=== PATIENT | male | born 1995 | race Two or more races ===

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

== ENCOUNTER 2017-01-01 12:38 | Emergency (ER) | payer OTHER ==
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
[2017-01-01] MEDS ORDERED: LET GEL TOPICAL 1 EA SYR TP ONE (13:21)
[2017-01-01 14:03] VITALS: BP 143/99; PULSE 82; RESP 18; TEMP 99; O2SAT 98
== END 2017-01-01 14:07 | disposition home or self-care (01) ==
DX: S63.682A Other sprain of left thumb, initial encounter (principal); V18.9XXA Unspecified pedal cyclist injured in noncollision transport accident in traffic accident, initial encounter
CPT/HCPCS: L3807

== ENCOUNTER 2017-02-17 17:15 | Inpatient (IN) | payer OTHER ==
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
[2017-02-17 18:37] LABS: % IMMATURE GRANULYOCYTES 0.3 % (0.0-1.1); ABSOLUTE IMMATURE GRANULOCYTES 0.03 10^3/uL (0.00-0.10); ADD DIFF? NO; ADD MORPH? NO; ADD SCAN? NO; ATYPICAL LYMPHOCYTE FLAG 0 (0-99); FRAGMENT RBC FLAG 0 (0-99); HEMATOCRIT 42.9 % (40.0-51.0); HEMOGLOBIN 14.8 g/dL (13.7-17.5); LEFT SHIFT FLG 0 (0-99); LIPEMIA HEMOLYSIS FLAG 90 (0-99); MEAN CELL HEMOGLOBIN CONCENTR. 34.5 g/dL (32.4-36.7); MEAN CELL VOLUME 84.1 fL (81.5-99.8); MEAN PLATELET VOLUME 9.7 fL (8.7-11.7); PLATELET CLUMPS FLAG 0 (0-99); PLATELET COUNT 236 10^3/uL (150-400); RED CELL DISTRIBUTION WIDTH 14.2 % (11.5-15.2)
[2017-02-17 19:19] LABS: ANION GAP 16 mEq/L (8-16); CALCIUM 10.4 mg/dL (8.5-10.4); CARBON DIOXIDE 25 mEq/l (22-31); CHLORIDE 98 mEq/L (97-110); CREATININE 1.1 mg/dL (0.7-1.3); ETHANOL SERUM < 10 mg/dL (0-10); GLOMERULAR FILTRATION RATE > 60; GLUCOSE 83 mg/dL (70-100); POTASSIUM 3.9 mEq/L (3.5-5.2); SALICYLATE < 1.0 mg/dL (2.0-20.0); SODIUM 139 mEq/L (134-144)
[2017-02-17] MEDS ORDERED: LORazepam 1 MG TAB PO ONE (23:55)
[2017-02-18] MEDS ORDERED: MAGNESIUM HYDROXIDE 30 ML UDCUP PO PRN (00:30)
[2017-02-18] MEDS ORDERED: OLANZapine DISINTEGR 5 MG TAB PO PRN (00:30)
[2017-02-18] MEDS ORDERED: NICOTINE POLACRILEX 2 MG GUM B PRN (00:30)
[2017-02-18] MEDS ORDERED: MAG HYDROX/AL HYDROX/SIMETH 30 ML UDCUP PO PRN (00:30)
[2017-02-18] MEDS ORDERED: ACETAMINOPHEN 325 MG TAB PO PRN (00:30)
[2017-02-18 01:36] VITALS: BP 147/72; PULSE 78; RESP 14; TEMP 97.7; O2SAT 98
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
[2017-02-18] MEDS: LORazepam 0.5 MG TAB PO PRN ×2 (19:38→20:52)
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
[2017-02-19] MEDS: LORazepam 0.5 MG TAB PO PRN (08:14)
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
== END 2017-02-19 12:08 | disposition home or self-care (01) | DRG 881 ==
LOC: BBEH 02-18 00:57
PROVIDERS: ADMIT Psychiatry & Neurology Behavioral Neurology & Neuropsychiatry; ATTEND Psychiatry & Neurology Behavioral Neurology & Neuropsychiatry
DX: F32.9 Major depressive disorder, single episode, unspecified (principal); F90.9 Attention-deficit hyperactivity disorder, unspecified type; Z62.820 Parent-biological child conflict; Z63.8 Other specified problems related to primary support group; Z87.828 Personal history of other (healed) physical injury and trauma; F17.229 Nicotine dependence, chewing tobacco, with unspecified nicotine-induced disorders
CPT/HCPCS: 80305; G0480

== ENCOUNTER 2017-02-22 08:43 | Emergency (ER) | payer OTHER ==
[2017-02-22 08:48] VITALS: BP 125/79; PULSE 96; RESP 18; TEMP 98.4; O2SAT 95
--- NOTE | 2017-02-22 08:59 | EDPHY ---
H & P Stated Complaint: Subjective fever x 3 days;thinks he has the flu Time Seen by Provider: 02/22/17 08:59 - Personal History Current Tetanus Diphtheria and Acellular Pertussis (TDAP): Unsure - Medical/Surgical History Hx Asthma: No Hx Chronic Respiratory Disease: No Hx Diabetes: No Hx Cardiac Disease: No Hx Renal Disease: No Hx Cirrhosis: No Hx Alcoholism: No Hx HIV/AIDS: No Hx Splenectomy or Spleen Trauma: No Other PMH: ADHD. persistent depressive disorder - Social History Smoking Status: Former smoker Constitutional: Initial Vital Signs Temperature (C) 36.9 C 02/22/17 08:44 Heart Rate 96 02/22/17 08:44 Respiratory Rate 18 02/22/17 08:44 Blood Pressure 125/79 H 02/22/17 08:44 O2 Sat (%) 95 02/22/17 08:44 O2 Delivery Mode Room Air Allergies/Adverse Reactions: Cephalosporins Allergy (Verified 02/22/17 08:44) Home Medications: Medication Instructions Recorded Amphet Asp and D/Amphet [Adderall 10 mg PO DAILY@15 02/18/17 10 MG (*)] Lisdexamfetamine Dimesylate 30 mg PO DAILY 02/18/17 [Vyvanse] LORazepam [Ativan (*)] 0.5 - 1 mg PO Q4HRS PRN #14 tab 02/19/17 Clindamycin 150 mg PO QID #40 cap 02/22/17 Medical Decision Making ED Course/Re-evaluation: CHIEF COMPLAINT: Fever, sore throat. HISTORY OF PRESENT ILLNESS: The patient is a 22-year-old male presenting with fever and sore throat. The patient reports difficulty swallowing. He has been having on and off chills for the past 3 days. Patient feels fatigued. He denies difficulty breathing, abdominal pain, nausea, or diarrhea. REVIEW OF SYSTEMS: A 10 point review of systems was performed and is negative with the exception of the elements mentioned in the history of present illness. PHYSICAL EXAM: HR, BP, O2 Sat, RR. Temp noted General Appearance: Alert, well hydrated, appropriate, and non-toxic appearing. Head: Atraumatic without scalp tenderness or obvious injury Eyes: Pupils equal, round, reactive to light and accommodation, EOMI, no trauma , no injection. Ears: Clear bilaterally, no perforation, normal landmarks Nose: Atraumatic, no rhinorrhea, clear. Throat: There is erythema and exudates. Neck: Supple, 2+ carotid upstroke, nontender, no lymphadenopathy. Respiratory: No retractions, no distress, no wheezes, and no accessory muscle use. Lungs are clear to auscultation bilaterally. Cardiovascular: Regular rate and rhythm, no murmurs, rubs, or gallops. Bilateral carotid, radial, dorsalis pedis, and posterior tibial pulses intact. Good capillary refill all extremities. Gastrointestinal: Abdomen is soft, nontender, non-distended, no masses, no rebound, no guarding, no peritoneal signs. Musculoskeletal: Normal active ROM of all extremities, atraumatic. Neurological: Alert, appropriate, and interactive. The patient has normal DTRs and non-focal cranial nerves, motor, sensory, and cerebellar exam. Skin: No rashes, good turgor, no nodules on palpation. Past medical history: Denies. Past surgical history: Denies. Family history: Noncontributory. Social history: [employer] student. DIFFERENTIAL DIAGNOSIS: The differential diagnosis for the patient's fever included but was not limited to strep throat, influenza, pneumonia, urinary tract infection, viral syndrome, meningitis, and sepsis. MEDICAL DECISION MAKING: Patient presents with fever and sore throat. On examination the patient has tonsillar erythema and exudates, likely strep throat. The patient has a cephalosporin allergy. I plan to treat him with Clindamycin. He received 150mg Clindamycin and 10mg Decadron in the ED. Departure - Departure Disposition: Home, Routine, Self-Care Clinical Impression: Pharyngitis Qualifiers: Pharyngitis/tonsillitis etiology: unspecified etiology Qualified Code(s): J02.9 - Acute pharyngitis, unspecified Condition: Good Instructions: Strep Throat (ED) Additional Instructions: Take the full course of antibiotics as directed. Drink plenty of fluids and get adequate rest. Return to the Emergency Department if you develop difficulty breathing, worsening pain, fever, or other symptoms. Referrals: MARIAH Arteaga,. [Clinic] - As per Instructions Report Scribed for: Arias Tomas Report Scribed by: Azul Hayes Date of Report: 02/22/17 Time of Report: 09:10
[2017-02-22] MEDS ORDERED: CLINDAMYCIN 150 MG CAP PO ONE (09:04)
[2017-02-22] MEDS ORDERED: DEXAMETHASONE 10 MG/ML VIAL PO ONE (09:05)
== END 2017-02-22 09:14 | disposition home or self-care (01) ==
DX: J02.9 Acute pharyngitis, unspecified (principal); Z87.891 Personal history of nicotine dependence
CPT/HCPCS: J1100

== ENCOUNTER 2017-08-09 10:56 | Emergency (ER) | payer OTHER ==
[2017-08-09 11:08] VITALS: BP 137/71
--- NOTE | 2017-08-09 11:16 | EDPHY ---
H & P Stated Complaint: sore throat & chills since yesterday Time Seen by Provider: 08/09/17 11:13 HPI/ROS: HPI: This is a 22-year-old male who presents with Chief Complaint: sore throat & chills since yesterday Location: Throat Quality: Sore Duration: 1 day Signs and Symptoms: + subjective fever, no nausea, no vomiting, no diarrhea, no urinary symptoms, no chest pain, no shortness of breath, no wheezing, no cough, + sore throat, no neck stiffness, no joint pain, + swollen glands, no ear pain, no rash Timing: Severity: Context: Patient is a student at [employer] presents with sudden onset of moderate, constant sore throat and fever and chills started yesterday evening. Patient took 2 tablets of Tylenol cold and Sinus last night with minimal relief. Reports he also has swollen glands. Denies any cough, neck stiffness, body aches. Patient reports that his fever was subjective and he did not actually take his temperature. Drinking fluids but has a poor appetite. Denies any abdominal pain/nausea/vomiting. Reports that it hurts to swallow certain foods. Modifying Factors: See above Comment: ROS: see HPI Constitutional: + fever, + chills, no weight loss Eyes: No blurred vision Respiratory: No shortness of breath, no cough Cardiovascular: No chest pain, no palpitations Gastrointestinal: No nausea, no vomiting, no diarrhea, no hematemesis, no blood in stool Genitourinary: No dysuria, no blood in urine Extremities: No myalgias, no edema Neurologic: No weakness, no numbness Skin: No rashes, no petechiae Hematologic: No bruising, no bleeding MEDICAL/SURGICAL/SOCIAL HISTORY: Medical history: ADHD Surgical history: Denies Social history: Student at [employer]. Former smoker. Family history noncontributory. CONSTITUTIONAL: Ill but nontoxic-appearing [place] young adult male, awake and alert, no obvious distress HEENT: Atraumatic and normocephalic, PERRL, EOMI. Nares patent; no rhinorrhea; no nasal mucosal edema. Tympanic membranes clear. Oropharynx clear, tonsils bright red 1+ hypertrophy; no exudate and moist pink mucosa. Airway patent. Moderate cervical anterior lymphadenopathy. No meningismus. Cardiovascular: Normal S1/S2, regular rate, regular rhythm, without murmur rub or gallop. PULMONARY/CHEST: Symmetrical and nontender. Clear to auscultation bilaterally. Good air movement. No accessory muscle usage. ABDOMEN: Soft, nondistended, nontender, no rebound, no guarding, no peritoneal signs, no masses or organomegaly. No CVAT. EXTREMITIES: 2/2 pulses, strength 5/5, no deformities, no clubbing, no cyanosis or edema. NEUROLOGICAL: no focal neuro deficits. GCS 15. SKIN: Warm and dry, no erythema. no rash. Good capillary refill. Source: Patient Exam Limitations: No limitations - Medical/Surgical History Hx Asthma: No Hx Chronic Respiratory Disease: No Hx Diabetes: No Hx Cardiac Disease: No Hx Renal Disease: No Hx Cirrhosis: No Hx Alcoholism: No Hx HIV/AIDS: No Hx Splenectomy or Spleen Trauma: No Other PMH: ADHD. persistent depressive disorder - Social History Smoking Status: Former smoker Constitutional: Initial Vital Signs Temperature (C) 37.0 C 08/09/17 11:04 Heart Rate 81 08/09/17 11:04 Respiratory Rate 18 08/09/17 11:04 Blood Pressure 137/71 H 08/09/17 11:04 O2 Sat (%) 98 08/09/17 11:04 O2 Delivery Mode Room Air Allergies/Adverse Reactions: Cephalosporins Allergy (Verified 02/22/17 08:44) Home Medications: Medication Instructions Recorded NK [No Known Home Meds] 08/09/17 Medical Decision Making ED Course/Re-evaluation: Strep test ordered Given p.o. Decadron 8 mg, 15 mL viscous lidocaine, Percocet x1 No signs of tonsillar abscess/airway compromise/meningitis Modified Centor score = 2; will wait on result of rapid strep test Strep test negative. Advised supportive care. Appears to be viral in nature. This patient was seen under the supervision of my secondary supervising physician. I evaluated care for this patient independently. Discussed this patient with Dr. Tomas who did not see the patient. Differential Diagnosis: Differential diagnosis includes but is not limited to viral pharyngitis, infectious mononucleosis, influenza, strep pharyngitis, upper respiratory infection. - Data Points Laboratory Results: 08/09/17 08/09/17 Unknown 11:20 Group A Strep Screen NEGATIVE (NEGATIVE) Group A Strep DNA Pending Medications Given: Discontinued Medications Dexamethasone (Decadron) 8 mg PO EDNOW ONE Stop: 08/09/17 11:18 Last Admin: 08/09/17 11:21 Dose: 8 mg Lidocaine (Lidocaine 2% Viscous) 15 ml PO EDNOW ONE Stop: 08/09/17 11:18 Last Admin: 08/09/17 11:22 Dose: 15 ml Oxycodone/Acetaminophen (Percocet 5/325) 1 tab PO EDNOW ONE Stop: 08/09/17 11:18 Last Admin: 08/09/17 11:22 Dose: 1 tab Departure - Departure Disposition: Home, Routine, Self-Care Clinical Impression: Viral pharyngitis Condition: Good Instructions: Pharyngitis (ED) Additional Instructions: Strep test today was negative. It appears that you have a virus causing your sore throat and low-grade fevers. Antibiotics are not indicated. Rest as much as possible until you are feeling better. Consume a minimum of 8-10 glasses of water or electrolyte fluid replacement drinks that include Gatorade, Powerade, Pedialyte. Eat a bland diet for the next 48 hours and then slowly advance as tolerated. Use [id number] cough drops and throat spray as needed for sore throat. If your symptoms are not improving in the next 4-5 days, follow-up with your primary care provider. School excuse has been provided. Return to the ER immediately if you cannot swallow, have drooling, fevers, neck stiffness, cannot open your jaw, or any other symptoms that concern you. Referrals: ELZBIETA BACA [Other] - 3-4 days, if not improved Stand Alone Forms: School Excuse
[2017-08-09] MEDS ORDERED: LIDOCAINE 2% VISCOUS 15 ML UDCUP PO ONE (11:17)
[2017-08-09] MEDS ORDERED: OXYCODONE/APAP 5/325 TAB PO ONE (11:17)
[2017-08-09] MEDS ORDERED: DEXAMETHASONE 4 MG TAB PO ONE (11:17)
== END 2017-08-09 11:41 | disposition home or self-care (01) ==
DX: J02.9 Acute pharyngitis, unspecified (principal); Z87.891 Personal history of nicotine dependence

== ENCOUNTER 2017-11-06 10:21 | Emergency (ER) | payer OTHER ==
[2017-11-06] MEDS ORDERED: DEXAMETHASONE 10 MG/ML VIAL IVP ONE (10:42)
[2017-11-06] MEDS ORDERED: NS 1,000 ML IV ONE (10:42)
--- NOTE | 2017-11-06 10:42 | EDPHY ---
General Time Seen by Provider: 11/06/17 10:30 Narrative: CHIEF COMPLAINT: Sore throat, fever, fatigue HISTORY OF PRESENT ILLNESS: Patient presents with complaints of sore throat, fever, fatigue. Symptoms started 2 days ago abruptly. They have been persistent. Dnsh-fu-zklhgivh pain. He has felt very tired and sore. He has no headache. No chest pain. No cough. No shortness of breath. No abdominal pain. No rash. Neck pain or stiffness. No trauma or injury. He has had several episodes of strep pharyngitis diagnosed outside facilities. He has never been tested for mono. No other associated complaints or modifying factors. REVIEW OF SYSTEMS: Ten systems reviewed and are negative unless otherwise noted in the HPI PCP: In [facility] SPECIALISTS: None PAST MEDICAL HISTORY: Attention deficit hyperactivity disorder PAST SURGICAL HISTORY: No surgical history SOCIAL HISTORY: Occasional alcohol and tobacco use. Originally from [facility]. [employer] student FAMILY HISTORY: Noncontributory EXAMINATION General Appearance: Alert, no distress Head: normocephalic, atraumatic Eyes: Pupils equal and round, no conjunctival pallor or injection ENT, Mouth: Mucous membranes moist. Uvula is midline. There is bilateral and symmetric enlargement of the tonsils with tonsillar exudate that is mild. The airway is widely patent without edema. There is no abnormality of the floor of the mouth. I do not appreciate any trismus or evidence of peritonsillar abscess. Neck: Tender cervical lymphadenopathy. No supraclavicular lymphadenopathy. Normal inspection, supple, non-tender. Painless range of motion in all planes Respiratory: Lungs are clear to auscultation Cardiovascular: Regular rate and rhythm. No murmur Gastrointestinal: Abdomen is soft and nontender Back: non-tender, no bony abnormalities Neurological: A&O, nonfocal, normal gait Skin: Warm and dry, no rash Extremities: Nontender, no pedal edema Psychiatric: Mood and affect normal DIFFERENTIAL DIAGNOSES: Including but not limited to strep pharyngitis, viral pharyngitis, strep tonsillitis, infectious mononucleosis, peritonsillar abscess, Eliseo's angina MDM: 10:35 a.m. Acute pharyngitis with cervical lymphadenopathy, malaise, described as he and subjective fever at home. Patient has had recurrent tonsillitis and pharyngitis with the past few years. Possibility of strep and mono are both likely. I have ordered fluid, mono test and IV steroid no acute distress. I do not appreciate any evidence of peritonsillar abscess. 11:00 a.m. Rapid strep test is negative. [place]atham test pending. 11:45 a.m. Mononucleosis test is negative. Patient re-evaluated. We discussed the possibility of viral pharyngitis versus strep pharyngitis with pending DNA PCR testing. We discussed that I would like to treat the patient with antibiotics as I do feel this will be a strep pharyngitis and tonsillitis. He has had multiple episodes of this for the past few years, thus I do recommend that he follows up with Ear Nose and Throat physician. We discussed short course of pain medication, additional dose of steroid and 10 days of antibiotics. We discussed increase fluid intake, ED precautions and he is discharged home stable condition. SUPERVISION: This patient was independently evaluated without direct involvement of or examination by the attending physician. - History Smoking Status: Former smoker - Objective Vital Signs: Initial Vital Signs Temperature (C) 99.0 F 11/06/17 10:25 Heart Rate 91 11/06/17 10:25 Respiratory Rate 16 11/06/17 10:25 Blood Pressure 142/74 H 11/06/17 10:25 O2 Sat (%) 98 11/06/17 10:25 O2 Delivery Mode Room Air Allergies/Adverse Reactions: Cephalosporins Allergy (Verified 11/06/17 10:28) Home Medications: Medication Instructions Recorded Acetaminophen/Codeine 300/30Mg 1 each PO Q6 PRN #9 tab 11/06/17 [Tylenol #3 (*)] Adderall 10 mg Tablet 11/06/17 Azithromycin 500 mg PO DAILY #5 tablet 11/06/17 Dexamethasone [Decadron 4 MG (*)] 8 mg PO ONCE #2 tab 11/06/17 VYVANSE 11/06/17 Medications Given: Discontinued Medications Dexamethasone (Decadron Injection) 10 mg IVP EDNOW ONE Stop: 11/06/17 10:43 Last Admin: 11/06/17 11:01 Dose: 10 mg Sodium Chloride (Ns) 1,000 mls @ 0 mls/hr IV EDNOW ONE; Wide Open PRN Reason: Protocol Stop: 11/06/17 10:43 Last Admin: 11/06/17 11:00 Dose: 1,000 mls Departure - Departure Disposition: Home, Routine, Self-Care Clinical Impression: Acute pharyngitis Qualifiers: Pharyngitis/tonsillitis etiology: other specified organisms Qualified Code(s): J02.8 - Acute pharyngitis due to other specified organisms Acute tonsillitis Qualifiers: Pharyngitis/tonsillitis etiology: unspecified etiology Qualified Code(s): J03.90 - Acute tonsillitis, unspecified Condition: Good Instructions: Pharyngitis (ED), Tonsillitis (ED) Additional Instructions: 1. Puza-rzz-zwjlhjn anti-inflammatories, ibuprofen 600 mg every 6-8 hours for pain 2. Prescription medications as needed for pain 3. Decadron steroid x1 tomorrow morning with breakfast 4. Increase fluid intake 5. Contact the floral specialist for further care 6. ED precautions for worsening symptoms, neck stiffness, headache, persistent fever greater than 101 Referrals: Ramsey Wisdmo MD [Primary Care Provider] - As per Instructions Manuel Kimball MD [Medical Doctor] - As per Instructions Stand Alone Forms: School Excuse Prescriptions: Acetaminophen/Codeine 300/30Mg [Tylenol #3 (*)] 1 each PO Q6 PRN #9 tab PRN Reason: Pain, Mild Azithromycin 500 mg PO DAILY #5 tablet Dexamethasone [Decadron 4 MG (*)] 8 mg PO ONCE #2 tab
[2017-11-06 11:57] VITALS: BP 135/74
== END 2017-11-06 12:04 | disposition home or self-care (01) ==
DX: J02.8 Acute pharyngitis due to other specified organisms (principal); Z87.891 Personal history of nicotine dependence
CPT/HCPCS: 96374; J1100

== ENCOUNTER 2017-12-20 08:23 | Emergency (ER) | payer OTHER ==
[2017-12-20 08:28] VITALS: BP 136/88
[2017-12-20] MEDS ORDERED: DEXAMETHASONE 4 MG TAB PO ONE (09:01)
--- NOTE | 2017-12-20 09:03 | EDPHY ---
H & P Time Seen by Provider: 12/20/17 08:57 HPI/ROS: CHIEF COMPLAINT: Sore throat HISTORY OF PRESENT ILLNESS: Patient is a 22-year-old male with a history of attention deficit hyperactivity disorder here with sore throat for 2-3 days. Denies any fever, cough, runny nose, rash. He denies any exposure to strep throat or mono. Does not smoke or do any illicit drugs. Denies any trouble breathing but does report pain with swallowing. ROS As detailed in HPI Smoking Status: Former smoker Physical Exam: General: Alert and oriented. Nontoxic appearing. No acute distress HEENT: Pupils PERRLA. No oral lesions. Tonsils are 2+ in erythematous bilaterally. Uvula is midline. No tongue elevation. No stridor. No exudate. Cardiopulmonary: Regular rate and rhythm. No lower extremity edema Skin: [place] warm and dry. No lesions. Muscle skeletal: Moving all 4 extremities. Equal strength in upper extremities and lower extremities. Ambulatory. Constitutional: Initial Vital Signs Temperature (C) 36.7 C 12/20/17 08:27 Heart Rate 78 12/20/17 08:27 Respiratory Rate 16 12/20/17 08:27 Blood Pressure 136/88 H 12/20/17 08:27 O2 Sat (%) 97 12/20/17 08:27 O2 Delivery Mode Room Air Allergies/Adverse Reactions: Cephalosporins Allergy (Verified 11/06/17 10:28) Home Medications: Medication Instructions Recorded Adderall 10 MG (*) 12/20/17 Vyvanse 12/20/17 Medical Decision Making ED Course/Re-evaluation: Patient is afebrile and has no tonsillar exudate or lymphadenopathy. He does have erythematous 2+ tonsils but no deviation of the uvula. Strep test is negative. He is given Decadron for pain and swelling. He does feel improved after Decadron. Strep culture was sent. Differential Diagnosis: Eliseo's angina, strep pharyngitis, mononucleosis, viral pharyngitis, meningitis , peritonsillar abscess - Data Points Laboratory Results: 12/20/17 12/20/17 Unknown 09:10 Group A Strep Screen NEGATIVE (NEGATIVE) Group A Strep DNA Pending Medications Given: Discontinued Medications Dexamethasone (Decadron) 10 mg PO EDNOW ONE Stop: 12/20/17 09:02 Last Admin: 12/20/17 09:17 Dose: 10 mg Departure - Departure Disposition: Home, Routine, Self-Care Clinical Impression: Pharyngitis Condition: Good Instructions: Pharyngitis (ED) Additional Instructions: Take Motrin 600 mg 3 times a day as needed for pain. If he have will worsening pain or trouble swallowing or breathing or other worrisome symptoms return to the ER for further evaluation. If her symptoms do not resolve in the next 3-5 days he has follow-up with her primary care physician. If her strep culture comes back positive for infection we will call you and prescribe antibiotics. Referrals: Ramsey Wisdom MD [Primary Care Provider] - As per Instructions
== END 2017-12-20 09:54 | disposition home or self-care (01) ==
DX: J02.9 Acute pharyngitis, unspecified (principal); Z87.891 Personal history of nicotine dependence

== ENCOUNTER 2017-12-24 09:03 | Emergency (ER) | payer OTHER ==
--- NOTE | 2017-12-24 09:14 | EDPHY ---
H & P Time Seen by Provider: 12/24/17 09:11 HPI/ROS: CHIEF COMPLAINT: "My lymph nodes are swollen" HISTORY OF PRESENT ILLNESS: 22-year-old immunocompetent male seen the ER 4 days ago for complaints of sore throat, had negative strep testing at that time. 2 days ago he had his right maxillary 3rd molar (tooth 1) extracted. He has controlled pain at his dental extraction site but notes new bilateral submandibular adenopathy. He denies dysphagia or odynophagia. He denies: Headache, fever, chills, otalgia, cough, dyspnea. At patient's last emergency department visit 4 days ago he received a dose of Decadron. He has history of depression and ADHD. He does note that after receiving this does he has been feeling more mood lability. Denies suicidal homicidal ideation. PRIMARY CARE PROVIDER: REVIEW OF SYSTEMS: 10 systems reviewed and negative with the exception of the elements mentioned in the history of present illness PAST MEDICAL & SURGICAL HISTORY: Depression. ADHD. SOCIAL HISTORY: Student PHYSICAL EXAM (Prior to examination, patient consented to physical exam, hands were washed and my usual and customary physical exam procedures followed) 1) GENERAL: Well-developed, well-nourished, alert and oriented. Appears to be in no acute distress. 2) HEAD: Normocephalic, atraumatic 3) HEENT: Pupils equal, round, reactive to light bilaterally. Sclera anicteric. Nasopharynx, oropharynx, clear, no lesions. Moist Mucous membranes. No tonsillar enlargement or exudate. No pointing of the uvula. No hot potato voice. Dental extraction site of tooth 1 appears well with no signs of infection. Floor of mouth soft with no evidence of Eliseo's angina. Ears bilaterally with normal tympanic membranes. 4) NECK: Full range of motion, no meningeal signs. Bilateral submandibular adenopathy is noted, tender. No submental or submandibular induration. No evidence of Eliseo's angina. 5) LUNGS: Clear auscultation bilaterally, no wheezes, no rhonchi, no retractions. 6) HEART: Regular rate and rhythm, no murmur, no heave, no gallop. 7) ABDOMEN: No guarding, no rebound, no focal tenderness, negative McBurney's, negative Jain's, negative Rovsing's, negative peritoneal sign, 8) MUSCULOSKELETAL: Moving all extremities, no focal areas of tenderness, no obvious trauma. No peripheral edema or discoloration. 9) BACK: No CVA tenderness, no midline vertebral tenderness, no fluctuance, no step-off, no obvious trauma, no visual or palpable abnormality. 10) SKIN: No rash, no petechiae. 11) Psychiatric: Patient is oriented X 3, there is no agitation. DIFFERENTIAL DIAGNOSIS: In no particular order, my differential diagnosis includes, but is not limited to, strep pharyngitis, viral pharyngitis, peritonsillar abscess, retropharyngeal abscess or plegmon, mononucleosis, meningitis, Lemierre syndrome. Smoking Status: Former smoker Constitutional: Initial Vital Signs Temperature (C) 37.0 C 12/24/17 09:07 Heart Rate 93 12/24/17 09:07 Respiratory Rate 18 12/24/17 09:07 Blood Pressure 131/83 H 12/24/17 09:07 O2 Sat (%) 100 12/24/17 09:07 O2 Delivery Mode Room Air Allergies/Adverse Reactions: Cephalosporins Allergy (Verified 12/24/17 09:06) Home Medications: Medication Instructions Recorded Adderall 10 MG (*) 12/20/17 Vyvanse 12/20/17 MDM/Departure - MDM ED Course/Re-evaluation: 9:14 a.m.: I reviewed the patient's old medical records including his negative rapid strep and strep DNA testing from 4 days ago. Doubt peritonsillar abscess on evaluation. Doubt Eliseo's angina. Will check mono testing. Will hold on further dose of steroids given his mental health history and noting that his last dose of Decadron increased his mood lability. 9:50 a.m.: Rapid strep test. Patient's airway is patent. Doubt Eliseo's angina , doubt Lemierre syndrome. I do not think that imaging or further diagnostic studies indicated from the E R. Will hold on further dose of Decadron given his mental health history and his self-reported response to last dose of Decadron. Recommend Tylenol Motrin, salt water gargle, given my usual and customary pharyngitis precautions and instructions. He feels comfortable being discharged. All questions and concerns addressed by myself. I saw this patient independently based on established practice protocols. Care of patient under supervision of secondary supervising physician Dr Cortez . - Depart Disposition: Home, Routine, Self-Care Clinical Impression: Adenopathy, cervical Condition: Good Instructions: Lymphadenopathy (ED) Additional Instructions: Return to the ER immediately if you cannot swallow, have drooling, fevers, neck stiffness, cannot open your jaw, or any other symptoms that concern you. Pediatric Fever & Pain Control: For fever/pain control we recommend: Acetaminophen (Tylenol) 650mg every 4 to 6 hours as needed Ibuprofen (Advil, Motrin) 600mg every 6 to 8 hours as needed. *Acetaminophen and Ibuprofen may be given in alternating doses or at the same time for high fever. (NOTE TIME DIFFERENCES) NEVER GIVE ASPIRIN TO AN OR CHILD. WARNING: THESE MEDICATIONS COME IN DIFFERENT STRENGTHS FOR INFANTS AND CHILDREN. BEFORE GIVING YOUR CHILD A DOSE OF MEDICATION, MAKE SURE THAT YOU ARE GIVING THE APPROPRIATE AMOUNT. Measurements: 1 teaspoon=5ml 1/2 teaspoon =2.5ml Stand Alone Forms: School Excuse Referrals: Ramsey Wisdom MD [Primary Care Provider] - 2-3 days, call for appt. Alejandro Cervantes MD [Medical Doctor] - 2-3 days, call for appt.
[2017-12-24 10:10] VITALS: BP 135/102
== END 2017-12-24 10:10 | disposition home or self-care (01) ==
DX: R59.0 Localized enlarged lymph nodes (principal)

== ENCOUNTER 2017-12-26 12:39 | Emergency (ER) | payer OTHER ==
--- NOTE | 2017-12-26 13:31 | EDPHY ---
HPI/HX/ROS/PE/MDM Narrative: CHIEF COMPLAINT: Sore throat, fever HISTORY OF PRESENT ILLNESS: The patient is a 22 y/o male complaining of sore throat and fever. He denies any other associated symptoms. He has been seen twice this week for similar symptoms. On his 1st visit, he was strep negative and was treated with Decadron. He fell this improved his symptoms somewhat but increased his mood lability. He was seen again 2 days ago with ongoing complaints and at that time had testing for mono and repeat strep both of which were negative. He has been taking ibuprofen only sporadically, and not drinking much fluid. Primary complaint today is ongoing pain. No chills, chest pain, shortness of breath, palpitations, vomiting, diarrhea, urinary complaints, headache, lightheadedness. REVIEW OF SYSTEMS: A comprehensive 10 system review of systems is otherwise negative aside from elements mentioned in the history of present illness and medical decision making. PAST MEDICAL HISTORY: Schizoaffective disorder SOCIAL HISTORY: Lives in [place], student at , PCP: Ramsey Thomson VITAL SIGNS: Reviewed by nj tachycardic to 111. GENERAL: Well-developed, well-nourished, resting comfortably in no respiratory distress. No stridor, no muffled voice, no drooling. HEENT: Atraumatic. Eyes: No icterus, no injection. Mouth: Erythematous throat. Bilateral tonsillar enlargement, left slightly greater than right, discharge present on the left. Moist mucous membranes. No lesions. Neck: supple with no adenopathy. LUNGS: Clear to auscultation bilaterally, no wheezes, rhonchi or rales. CARDIAC: Regular rate and rhythm, no rubs, murmurs or gallops. ABDOMEN: Soft, nontender, nondistended, bowel sounds normal. BACK: No CVA tenderness. EXTREMITIES: No trauma. No edema. Range of motion is normal throughout. NEURO: Alert and oriented, grossly nonfocal. SKIN: Warm and dry, no rash. PSYCHIATRIC: Normal mentation, no agitation. ED Course: The patient presents with sore throat and fever. He has been seen several times for similar symptoms. He has been tested for mono and strep, both with negative results. He reports only drinking fluids infrequently and have ibuprofen sporadically. Long conversation held with the patient concerning the importance of symptomatic care. We discussed adequate fluid intake, salt water gargles, ibuprofen on a regular basis, throat lozenges. Patient requested IV of normal saline for his elevated heart rate and I agreed. Given the tonsillar enlargement and asymmetry patient was placed on clindamycin to prevent development of peritonsillar abscess. Discharged in improved condition. MDM: Differential diagnosis for the patient's sore throat was considered including but not limited to viral pharyngitis, bacterial pharyngitis, tonsillitis, tonsillar abscess, peritonsillar abscess, foreign body, epiglottitis, bacterial tracheitis. - Data Points Medications Given: Discontinued Medications Clindamycin (Clindamycin) 300 mg PO EDNOW ONE PRN Reason: Protocol Stop: 12/26/17 13:52 Last Admin: 12/26/17 14:00 Dose: 300 mg Sodium Chloride (Ns) 1,000 mls @ 0 mls/hr IV ONCE ONE; Wide Open PRN Reason: Protocol Stop: 12/26/17 13:52 Last Admin: 12/26/17 14:00 Dose: 1,000 mls General Time Seen by Provider: 12/26/17 13:08 Initial Vital Signs: Initial Vital Signs Temperature (C) 37.7 C 12/26/17 12:42 Heart Rate 111 H 12/26/17 12:42 Respiratory Rate 16 12/26/17 12:42 Blood Pressure 119/66 12/26/17 12:42 O2 Sat (%) 95 12/26/17 12:42 O2 Delivery Mode Room Air Allergies/Adverse Reactions: Cephalosporins Allergy (Verified 12/24/17 09:06) Home Medications: Medication Instructions Recorded Adderall 10 MG (*) 12/20/17 Vyvanse 12/20/17 Clindamycin HCl [Clindamycin] 300 mg PO TID #30 cap 12/26/17 Departure - Departure Disposition: Home, Routine, Self-Care Clinical Impression: Sore throat (viral), Fever Acute pharyngitis Qualifiers: Pharyngitis/tonsillitis etiology: unspecified etiology Qualified Code(s): J02.9 - Acute pharyngitis, unspecified Condition: Good Instructions: Pharyngitis (ED), Fever in Adults (ED) Additional Instructions: 1. Take antibiotics as directed. 2. Please take 600mg ibuprofen every 6 to 8 hours with food until symptoms resolve. 3. Drink plenty of cold water. 4. Gargle with salt water frequently. 5. Follow up with your primary care provider for continue symptoms in 3 to 5 days. 6. Return to the emergency department for dramatic worsening of condition. Referrals: Ramsey Wisdom MD [Primary Care Provider] - As per Instructions Prescriptions: Clindamycin HCl [Clindamycin] 300 mg PO TID #30 cap Report Scribed for: Dixie Barriga Report Scribed by: Frances Garcia Date of Report: 12/26/17 Time of Report: 13:57 Physician Review and Approval Statement: Portions of this note were transcribed by a medical coder. I personally performed a history, physical exam, medical decision making, and confirmed accuracy of information the transcribed note.
[2017-12-26] MEDS ORDERED: NS 1,000 ML IV ONE (13:51)
[2017-12-26] MEDS ORDERED: CLINDAMYCIN 150 MG CAP PO ONE (13:51)
[2017-12-26 14:59] VITALS: BP 151/65
== END 2017-12-26 14:59 | disposition home or self-care (01) ==
DX: J02.9 Acute pharyngitis, unspecified (principal); E86.9 Volume depletion, unspecified

== ENCOUNTER 2018-04-18 00:12 | Emergency (ER) | payer OTHER ==
--- NOTE | 2018-04-18 00:37 | EDPHY ---
General - History Smoking Status: Former smoker Time Seen by Provider: 04/18/18 00:25 Narrative: CLINICAL IMPRESSION: [Exudative tonsillitis, negative rapid strep] ASSESSMENT/PLAN: [ 23-year-old male presents to the emergency department with 3 days of sore throat and subjective fever. On exam, patient has mild left greater than right exudate of tonsillitis with no peritonsillar abscess, retropharyngeal abscess, epiglottitis, uvulitis, stomatitis or signs of severe dehydration. Rapid strep and rapid flu both negative. Throat culture pending. Supportive care encouraged, PCP follow-up recommended, warning signs return to ED sooner outlined and discharge.] DIFFERENTIAL DX: Differential includes but not limited to strep tonsillitis, viral tonsillitis, influenza, viral syndrome ED PROCEDURES: [ See lab and/or imaging results below] Rapid strep and rapid flu test obtained by triage nurse ED COURSE: 1:26 a.m.: Rapid flu and strep negative. Results relayed to the patient. Throat culture pending. Supportive care encouraged. PCP follow-up recommended CHIEF COMPLAINT: Sore throat and fever HPI: 23-year-old male presents to the emergency department with 3 days of sore throat and fever that developed yesterday. Patient has been treating with Tylenol and ibuprofen. He reports past history of strep. He states this feels the same. He has been able to eat and drink and is tolerating secretions well. No reports of neck pain or swelling. No dental injury or recent procedure. PAST MEDICAL HISTORY: [ Attention deficit hyperactivity disorder and depression] [See triage summary and nurse notes for addition applicable history ] Pertinent Past Surgical History: None reported Family History: Noncontributory Social History: Otherwise healthy, quit smoking REVIEW OF SYSTEMS: A full 10 point review of systems was negative except for those mentioned in HPI. PHYSICAL EXAM: General Appearance: [Alert, oriented, appropriate, cooperative, NAD, well hydrated, non-toxic appearing, low-grade temperature, slightly tachycardic, tolerating secretions, no hypoxia.] HEENT: [TMs are clear bilaterally no perforation or FB, no injection, no evidence of serous or mucopurulent otitis. Oropharynx is clear with symmetric bilateral erythema and swelling of the tonsils. Exudates noted left greater than right. No evidence of peritonsillar abscess or retropharyngeal abscess. Dentition without abnormality.] Eyes: [PERRLA, no acute vision change, nystagmus, swelling, discharge, pain or photosensitivity. Conjunctiva pink, no pallor or injection] Neck: [Supple, nontender, no lymphadenopathy, no midline pain, FROM, no meningismus.] Respiratory: [There are no retractions, lungs are clear to auscultation.] Skin: [Warm, dry, no rashes, no nodules on palpation.] MEDICAL DECISION MAKING: Patient was seen independently. Secondary supervising physician at time of evaluation was: Dr. Causey. Diagnosis: Exudative tonsillitis. New, requires workup Summary: [See Assessment and Plan for summary of ED visit ] Clinical lab tests: [ ordered / reviewed]. Patient Progress: Improved. (Christopher Mcwilliams) PHYSICIAN DOCUMENTATION: The patient was evaluated and managed by the Physician Chapter Relations Administrator. My co- signature indicates that I have reviewed this chart and I agree with the findings and plan of care as documented. I am the secondary supervising physician. (Beryl Causey) - Objective Vital Signs: Initial Vital Signs Temperature (C) 37.4 C 04/18/18 00:15 Heart Rate 107 H 04/18/18 00:15 Respiratory Rate 18 04/18/18 00:15 Blood Pressure 118/71 04/18/18 00:15 O2 Sat (%) 95 04/18/18 00:15 O2 Delivery Mode Room Air Allergies/Adverse Reactions: Cephalosporins Allergy (Verified 04/18/18 00:17) Home Medications: Medication Instructions Recorded Adderall 10 MG (*) 12/20/17 Vyvanse 12/20/17 Laboratory Results: 04/18/18 04/18/18 Unknown 00:20 Nasal Influenza A PCR NEGATIVE FOR FLU A (NEGATIVE) Nasal Influenza B PCR NEGATIVE FOR FLU B (NEGATIVE) RSV (PCR) NEGATIVE FOR RSV (NEGATIVE) Group A Strep Screen NEGATIVE (NEGATIVE) Group A Strep DNA Pending Departure - Departure Disposition: Home, Routine, Self-Care Clinical Impression: Tonsillitis Condition: Good Instructions: Tonsillitis (ED) Additional Instructions: DISCHARGE INSTRUCTIONS FROM YOUR DOCTOR Thank you for visiting our emergency department today. Please keep in mind that discharge from the emergency department does not mean that there is nothing wrong - it simply means that we have not identified an emergency condition that requires further evaluation or treatment in the hospital. You should always plan to follow up with primary care for re-evaluation of your condition in the next 2-3 days. If you have been referred to a specialist, please call as soon as possible (today or tomorrow) to schedule your follow up appointment at the appropriate time. RAPID STREP AND RAPID FLU TEST WERE NEGATIVE. THROAT CULTURE IS PENDING. WE WILL CALL YOU IN 2-3 DAYS IF HE REQUIRE AN ANTIBIOTIC. PLEASE CONTINUE TYLENOL , IBUPROFEN, SALT WATER GARGLES, PLENTY OF WATER. FOLLOW UP WITH PRIMARY CARE NEXT WEEK TO RECHECK. RETURN TO THE EMERGENCY DEPARTMENT IF YOU ARE UNABLE TO TOLERATE YOUR OWN SALIVA, ARE HAVING TROUBLE DRINKING AND STAYING HYDRATED, INCREASED THROAT PAIN OR NECK PAIN, NECK SWELLING, OR ANY OTHER CONCERNS. People present with illnesses and injuries in different ways, and it is always possible that we have missed something. You may always return for re-evaluation if symptoms worsen or if they are not improving or if you develop new/different symptoms. Again, thank you for choosing our emergency department. We hope that you feel better. Referrals: Ramsey Wisdom MD [Primary Care Provider] - 1-2 days without fail
[2018-04-18 01:33] VITALS: BP 119/81
== END 2018-04-18 01:33 | disposition home or self-care (01) ==
DX: J03.90 Acute tonsillitis, unspecified (principal)

== ENCOUNTER 2018-07-09 16:36 | Emergency (ER) | payer OTHER ==
--- NOTE | 2018-07-09 17:13 | EDPHY ---
H & P Stated Complaint: fatigued, sore throat, hurts to breathe, SOB, L shoulder pain Time Seen by Provider: 07/09/18 17:07 HPI/ROS: CHIEF COMPLAINT: Chest and shoulder pain HISTORY OF PRESENT ILLNESS: Patient is a 23-year-old man with a history of ADD and marijuana abuse who comes to the emergency department stating that he developed left chest and shoulder pain over the last 12 hr. He also states that he had constipation early this morning but that has since resolved. He also states that he has been fatigued because he only slept 4 hr last night. No fevers. No cough. No shortness of breath. No nausea vomiting or other GI symptoms. No urinary symptoms. No rash. No leg pain or swelling. He does smoke. Pain is not worsened by movement of her shoulder palpation. Severity: Moderate Modifying factors: None REVIEW OF SYSTEMS: Constitutional: denies: chills, fever, recent illness, recent injury EENTM: denies: blurred vision, double vision, nose congestion Respiratory: denies: cough, shortness of breath Cardiac: See HPI denies: irregular heart rate, lightheadedness, palpitations Gastrointestinal/Abdominal: denies: abdominal pain, diarrhea, nausea, vomiting, blood streaked stools Genitourinary: denies: dysuria, frequency, hematuria, pain Musculoskeletal: denies: joint pain, muscle pain Skin: denies: lesions, rash, jaundice, bruising Neurological: denies: headache, numbness, paresthesia, tingling, dizziness, weakness Hematologic/Lymphatic: denies: blood clots, easy bleeding, easy bruising Immunologic/allergic: denies: HIV/AIDS, transplant 10 systems reviewed and negative except as noted EXAM: GENERAL: Well-appearing, well-nourished and in no acute distress. HEAD: Atraumatic, normocephalic. EYES: Pupils equal round and reactive to light, extraocular movements intact, sclera anicteric, conjunctiva are normal. ENT: TMs normal, nares patent, oropharynx clear without exudates. Moist mucous membranes. NECK: Normal range of motion, supple without lymphadenopathy or JVD. LUNGS: Breath sounds clear to auscultation bilaterally and equal. No wheezes rales or rhonchi. HEART: Regular rate and rhythm without murmurs, rubs or gallops. ABDOMEN: Soft, nontender, normoactive bowel sounds. No guarding, no rebound. No masses appreciated. BACK: No CVA tenderness, no spinal tenderness, step-offs or deformities EXTREMITIES: Normal range of motion, no pitting or edema. No clubbing or cyanosis. NEUROLOGICAL: Cranial nerves II through XII grossly intact. Normal speech, normal gait. 5/5 strength, normal movement in all extremities, normal sensation , normal reflexes PSYCH: Normal mood, normal affect. SKIN: Warm, dry, normal turgor, no visible rashes or lesions. Source: Patient Exam Limitations: No limitations - Personal History Current Tetanus Diphtheria and Acellular Pertussis (TDAP): Yes - Medical/Surgical History Hx Asthma: No Hx Chronic Respiratory Disease: No Hx Diabetes: No Hx Cardiac Disease: No Hx Renal Disease: No Hx Cirrhosis: No Hx Alcoholism: No Hx HIV/AIDS: No Hx Splenectomy or Spleen Trauma: No Other PMH: ADHD, depression - Family History Significant Family History: No pertinent family hx - Social History Smoking Status: Former smoker Alcohol Use: None Drug Use: Marijuana Constitutional: Initial Vital Signs Temperature (C) 37 C 07/09/18 16:39 Heart Rate 104 H 07/09/18 16:39 Respiratory Rate 16 07/09/18 16:39 Blood Pressure 144/89 H 07/09/18 16:39 O2 Sat (%) 96 07/09/18 16:39 O2 Delivery Mode Room Air Allergies/Adverse Reactions: Cephalosporins Allergy (Verified 04/18/18 00:17) Home Medications: Medication Instructions Recorded Adderall 10 MG (*) 12/20/17 Vyvanse 12/20/17 Medical Decision Making - Diagnostics EKG Interpretation: An EKG obtained and was read and documented in trace view. Please see trace view for full reading and report. Sinus rhythm, no acute ischemic changes Imaging Results: Imaging Impressions Chest X-Ray 07/09/18 17:13 Impression: Mild peribronchial thickening which can be seen with airways disease /bronchitis. Imaging: Discussed imaging studies w/ calliope player Radiologist ED Course/Re-evaluation: Patient's lab work EKG and x-ray are all reassuring. He feels better and declines further workup or testing. Discussed follow-up and indications for returning. Differential Diagnosis: Partial list of the Differential diagnosis considered include but were not limited to; muscle strain, chest wall pain, shoulder injury and although unlikely based on the history and physical exam, I also considered DVT, dissection, acute coronary disease, pneumonia, pneumothorax, radiculopathy. I discussed these differential diagnoses and the plan with the patient as well as the usual and expected course. The patient understands that the diagnosis is provisional and that in medicine we are not always correct and that further workup is often warranted. Usual and customary warnings were given. All of the patient's questions were answered. The patient was instructed to return to the emergency department should the symptoms at all worsen or return, otherwise to followup with the physician as we discussed. - Data Points Laboratory Results: 07/09/18 17:35 D-Dimer < 0.27 ug/mLFEU ug/mLFEU (0.00-0.50) Departure - Departure Disposition: Home, Routine, Self-Care Clinical Impression: Shoulder pain, left Qualifiers: Chronicity: acute Qualified Code(s): M25.512 - Pain in left shoulder Condition: Fair Instructions: Shoulder Pain (ED) Referrals: Ramsey Wisdom MD [Primary Care Provider] - 2-3 days, if not improved
--- NOTE | 2018-07-09 17:47 | CPEKG ---
Test Reason : OPEN Blood Pressure : / mmHG Vent. Rate : 093 BPM Atrial Rate : 091 BPM P-R Int : 140 ms QRS Dur : 088 ms QT Int : 315 ms P-R-T Axes : 068 081 028 degrees QTc Int : 392 ms Sinus rhythm Confirmed by Cedrick Copeland ([id number]) on 07/09/2018 5:46:48 PM Referred By: CEDRICK COPELAND Confirmed By:Cedrick Copeland
[2018-07-09 18:21] VITALS: BP 143/85
== END 2018-07-09 18:20 | disposition home or self-care (01) ==
DX: M25.512 Pain in left shoulder (principal); R07.89 Other chest pain; R53.83 Other fatigue; Z87.891 Personal history of nicotine dependence